=== PATIENT | female | born 1990 | race Two or more races ===

== ENCOUNTER 2019-12-28 18:37 | Emergency (ER) | payer BC, MEDICAID ==
[~2019-12-28] VITALS: Ht 160 cm; Wt 97.5 kg
[2019-12-28] MEDS ORDERED: BACITRACIN TOP OINT 1 UD PKG TOP ONE (20:00)
[2019-12-28 20:44] VITALS: BP 137/89
== END 2019-12-28 21:07 | disposition home or self-care (01) ==
LOC: ER 18:37
DX: S61.011A Laceration without foreign body of right thumb without damage to nail, initial encounter (principal); W26.0XXA Contact with knife, initial encounter; Y93.89 Activity, other specified; Y92.89 Other specified places as the place of occurrence of the external cause; Y99.8 Other external cause status
CPT/HCPCS: 12001; 73140

== ENCOUNTER 2023-04-17 11:16 | Emergency (ER) | payer MEDICAID ==
[~2023-04-17] VITALS: Ht 160 cm; Wt 101.9 kg
[2023-04-17 13:31] VITALS: BP 154/93; TEMP 97.9
[2023-04-17 13:37] VITALS: RESP 16; O2SAT 98
[2023-04-17 15:13] VITALS: PULSE 75
[2023-04-17] MEDS ORDERED: IBUPROFEN 800 MG TAB PO ONE (15:15)
[2023-04-17] MEDS ORDERED: ACETAMINOPHEN 500 MG TAB PO ONE (15:15)
== END 2023-04-17 17:03 | disposition home or self-care (01) ==
LOC: ER 11:16
DX: H92.02 Otalgia, left ear (principal); R07.89 Other chest pain; Z88.1 Allergy status to other antibiotic agents
CPT/HCPCS: 70490; 93005